=== PATIENT | female | born 1945 | race Caucasian/White ===

== ENCOUNTER 2018-07-13 09:06 | Day surgery (SDC) | payer MEDICARE ==
[~2018-07-13] VITALS: Ht 174 cm; Wt 110.0 kg
[2018-07-13 09:11] VITALS: BP 150/83
[2018-07-13] MEDS ORDERED: MIDAZolam 5mg/5ml vial ONE (09:12)
[2018-07-13] MEDS ORDERED: fentaNYL/PF 50MCG/1 ML 2ML syringe ONE (09:12)
[2018-07-13] MEDS ORDERED: NAPR220T67 PO (09:21)
[2018-07-13] MEDS ORDERED: RANI150T44 PO (09:21)
[2018-07-13 10:10] VITALS: BP 130/65
[2018-07-13 10:20] VITALS: BP 129/62
[2018-07-13 10:30] VITALS: BP 137/93
[2018-07-13 10:40] VITALS: BP 159/55
== END 2018-07-13 10:45 | disposition home or self-care (01) ==
LOC: GI LAB 09:06
PROVIDERS: ATTEND Internal Medicine Gastroenterology
DX: Z08 Encounter for follow-up examination after completed treatment for malignant neoplasm (principal); K21.9 Gastro-esophageal reflux disease without esophagitis; Z85.038 Personal history of other malignant neoplasm of large intestine; Z87.09 Personal history of other diseases of the respiratory system; Z90.49 Acquired absence of other specified parts of digestive tract; Z72.89 Other problems related to lifestyle; Z98.0 Intestinal bypass and anastomosis status; Z88.5 Allergy status to narcotic agent; Z88.6 Allergy status to analgesic agent; Z92.21 Personal history of antineoplastic chemotherapy; Z79.899 Other long term (current) drug therapy; Z98.890 Other specified postprocedural states
CPT/HCPCS: 99153; G0105; G0500; J2250; J3010; J7030; 45378; 99152; A4620